=== PATIENT | female | born 1985 | race Caucasian/White ===

== ENCOUNTER 2024-05-12 22:10 | Emergency (ER) | payer SELFPAY ==
[2024-05-12 22:20] VITALS: BP 135/78; PULSE 98
== END 2024-05-12 22:50 | disposition home or self-care (01) ==
LOC: CC.ED 22:10
DX: T74.11XA Adult physical abuse, confirmed, initial encounter (principal); S93.402A Sprain of unspecified ligament of left ankle, initial encounter; F17.210 Nicotine dependence, cigarettes, uncomplicated; Z91.048 Other nonmedicinal substance allergy status; Z88.2 Allergy status to sulfonamides; Y07.010 Husband, current, perpetrator of maltreatment and neglect
CPT/HCPCS: 73610-LT; 99283

== ENCOUNTER 2024-06-08 18:24 | Inpatient (IN) | payer SELFPAY ==
[2024-06-08] MEDS: Sodium Chloride 0.9% 1,000 ML IV ONE ×2 (18:35→19:45)
[2024-06-08] MEDS: Ondansetron 4 MG/2 ML SDV IVPUSH PRN (18:47)
[2024-06-08 19:04] LABS: BASOPHILS ABSOLUTE AUTO 0.01 10^3/uL (0.00-0.50); BASOPHILS PERCENT AUTO 0.1 % (0-1); EOSINOPHILS ABSOLUTE AUTO 0.02 10^3/uL (0.00-1.50); EOSINOPHILS PERCENT AUTO 0.2 % (0-6); HEMATOCRIT 34.1 % (37.0-47.0); HEMOGLOBIN 11.6 g/dL (12.0-16.0); IMMATURE GRAN ABSOLUTE AUTO 0.01 10^3/uL (0.00-0.49); IMMATURE GRAN PERCENT AUTO 0.1 % (0.0-4.9); LYMPHOCYTES ABSOLUTE AUTO 0.73 10^3/uL (0.60-5.00); LYMPHOCYTES PERCENT AUTO 7.2 % (24-44); MEAN CORPUSCULAR HEMOGLOBIN 30.2 pg (27.0-32.0); MEAN CORPUSCULAR VOLUME 88.8 fL (83.0-97.0); MONOCYTES ABSOLUTE AUTO 0.78 10^3/uL (0.00-1.50); MONOCYTES PERCENT AUTO 7.7 % (0-10); NEUTROPHILS ABSOLUTE AUTO 8.61 x10^3/uL (1.80-8.00); NEUTROPHILS PERCENT AUTO 84.7 % (41-71); PLATELET COUNT,PLT 152 10^3/uL (150-400); RED BLOOD CELL COUNT 3.84 x10^6/uL (4.00-5.50); WHITE BLOOD CELL COUNT,WBC 10.2 10^3/uL (4.0-11.0)
[2024-06-08 19:17] LABS: ALBUMIN 1.8 g/dL (3.4-5.0); BILIRUBIN TOTAL 2.1 mg/dL (0.0-1.0); C-REACTIVE PROTEIN 7.03 mg/dL (<=0.50); CALCIUM 7.9 mg/dL (8.4-10.1); CREATININE 1.5 mg/dL (0.6-1.0); EST CRCL DRUG DOSING (CG) 50.42 mL/min; MAGNESIUM 1.2 mg/dL (1.8-2.4); POTASSIUM,K 4.2 mEq/L (3.5-5.0); PROTEIN TOTAL,TP 5.3 g/dL (6.4-8.2)
[2024-06-08 19:17] LABS: APPEARANCE,URINE CLOUDY (CLEAR); COLOR,URINE RED (YELLOW); GLUCOSE,URINE NEGATIVE (NEGATIVE); KETONES,URINE TRACE mg/dL (NEGATIVE); OCCULT BLOOD,URINE LARGE (NEGATIVE); PROTEIN,URINE >=300 mg/dL (NEGATIVE)
[2024-06-08] MEDS: Acetaminophen 500 MG Tab PO ONE (19:20)
[2024-06-08 19:30] LABS: BILIRUBIN,URINE MODERATE (NEGATIVE); LEUKOCYTE ESTERASE,URINE MODERATE (NEGATIVE); NITRITE,URINE NEGATIVE (NEGATIVE)
[2024-06-08 19:31] LABS: BACTERIA,URINE FEW /HPF (NOT SEEN); RBC,URINE PACKED /HPF (0-5); SQUAMOUS EPITHELIAL CELLS,UR FEW /HPF (NOT SEEN)
[2024-06-08] MEDS: Magnesium Sulfate/Water 4 GM in Premix Bag 1 BAG IV ONE (19:35)
[2024-06-08] MEDS: Morphine 2 MG/ML SYRINGE IVPUSH ONE (19:48)
[2024-06-08] MEDS: cefTRIAXone 2 GM Vial IVPUSH ONE (19:54)
[2024-06-08] MEDS ORDERED: Ondansetron 4 MG Tab.DIS PO PRN (21:46)
[2024-06-08] MEDS ORDERED: Docusate Sodium 100 MG Cap PO PRN (21:46)
[2024-06-08] MEDS ORDERED: Ketorolac 30 MG/ML SDV IVPUSH PRN (21:46)
[2024-06-08] MEDS ORDERED: Ondansetron 4 MG/2 ML SDV IV PRN (21:46)
[2024-06-08] MEDS ORDERED: Polyethylene Glycol 3350 Powder 17 GM Packet PO PRN (21:46)
[2024-06-08] MEDS: Lactated Ringers 1,000 ML IV SCH (22:02)
[2024-06-09] MEDS: cefTRIAXone 1 GM Vial IVPUSH SCH (07:40)
[2024-06-09] MEDS: Acetaminophen 325 MG Tab PO PRN (07:40)
[2024-06-09 07:43] LABS: BASOPHILS ABSOLUTE AUTO 0.01 10^3/uL (0.00-0.50); BASOPHILS PERCENT AUTO 0.1 % (0-1); EOSINOPHILS ABSOLUTE AUTO 0.02 10^3/uL (0.00-1.50); EOSINOPHILS PERCENT AUTO 0.2 % (0-6); HEMATOCRIT 33.4 % (37.0-47.0); HEMOGLOBIN 11.3 g/dL (12.0-16.0); IMMATURE GRAN ABSOLUTE AUTO 0.02 10^3/uL (0.00-0.49); IMMATURE GRAN PERCENT AUTO 0.2 % (0.0-4.9); LYMPHOCYTES ABSOLUTE AUTO 0.82 10^3/uL (0.60-5.00); LYMPHOCYTES PERCENT AUTO 7.1 % (24-44); MEAN CORPUSCULAR HEMOGLOBIN 30.4 pg (27.0-32.0); MEAN CORPUSCULAR HGB CONC 33.8 g/dL (32.0-36.0); MEAN CORPUSCULAR VOLUME 89.8 fL (83.0-97.0); MONOCYTES ABSOLUTE AUTO 1.11 10^3/uL (0.00-1.50); MONOCYTES PERCENT AUTO 9.6 % (0-10); NEUTROPHILS ABSOLUTE AUTO 9.64 x10^3/uL (1.80-8.00); NEUTROPHILS PERCENT AUTO 82.8 % (41-71); PLATELET COUNT,PLT 148 10^3/uL (150-400); RED BLOOD CELL COUNT 3.72 x10^6/uL (4.00-5.50); WHITE BLOOD CELL COUNT,WBC 11.6 10^3/uL (4.0-11.0)
[2024-06-09 07:53] LABS: CALCIUM 7.2 mg/dL (8.4-10.1); CREATININE 2.2 mg/dL (0.6-1.0); EST CRCL DRUG DOSING (CG) 34.38 mL/min; MAGNESIUM 2.5 mg/dL (1.8-2.4)
[2024-06-09] MEDS: cefTRIAXone 1 GM Vial IVPUSH ONE (10:23)
[2024-06-09] MEDS: Sodium Chloride 0.9% 1,000 ML IV ONE (11:37)
[2024-06-10] MEDS: cefTRIAXone 2 GM Vial IVPUSH SCH (07:42)
[2024-06-10 07:49] LABS: BASOPHILS ABSOLUTE AUTO 0.02 10^3/uL (0.00-0.50); BASOPHILS PERCENT AUTO 0.3 % (0-1); EOSINOPHILS ABSOLUTE AUTO 0.09 10^3/uL (0.00-1.50); EOSINOPHILS PERCENT AUTO 1.4 % (0-6); HEMATOCRIT 30.1 % (37.0-47.0); HEMOGLOBIN 10.2 g/dL (12.0-16.0); IMMATURE GRAN ABSOLUTE AUTO 0.01 10^3/uL (0.00-0.49); IMMATURE GRAN PERCENT AUTO 0.2 % (0.0-4.9); LYMPHOCYTES ABSOLUTE AUTO 1.23 10^3/uL (0.60-5.00); LYMPHOCYTES PERCENT AUTO 18.7 % (24-44); MEAN CORPUSCULAR HEMOGLOBIN 30.3 pg (27.0-32.0); MEAN CORPUSCULAR HGB CONC 33.9 g/dL (32.0-36.0); MEAN CORPUSCULAR VOLUME 89.3 fL (83.0-97.0); MONOCYTES ABSOLUTE AUTO 0.72 10^3/uL (0.00-1.50); MONOCYTES PERCENT AUTO 10.9 % (0-10); NEUTROPHILS ABSOLUTE AUTO 4.52 x10^3/uL (1.80-8.00); NEUTROPHILS PERCENT AUTO 68.5 % (41-71); PLATELET COUNT,PLT 144 10^3/uL (150-400); RED BLOOD CELL COUNT 3.37 x10^6/uL (4.00-5.50); WHITE BLOOD CELL COUNT,WBC 6.6 10^3/uL (4.0-11.0)
[2024-06-10 08:09] LABS: ALBUMIN 1.4 g/dL (3.4-5.0); BILIRUBIN TOTAL 0.2 mg/dL (0.0-1.0); C-REACTIVE PROTEIN 8.19 mg/dL (<=0.50); CALCIUM 7.3 mg/dL (8.4-10.1); EST CRCL DRUG DOSING (CG) 22.24 mL/min; MAGNESIUM 2.4 mg/dL (1.8-2.4); POTASSIUM,K 3.9 mEq/L (3.5-5.0); PROTEIN TOTAL,TP 4.6 g/dL (6.4-8.2)
[2024-06-10 08:12] LABS: CREATININE 3.4 mg/dL (0.6-1.0)
[2024-06-10] MEDS: Sodium Chloride 0.9% 1,000 ML IV SCH (13:21)
[2024-06-11 07:46] LABS: BASOPHILS ABSOLUTE AUTO 0.02 10^3/uL (0.00-0.50); BASOPHILS PERCENT AUTO 0.3 % (0-1); EOSINOPHILS ABSOLUTE AUTO 0.15 10^3/uL (0.00-1.50); EOSINOPHILS PERCENT AUTO 2.4 % (0-6); HEMATOCRIT 29.5 % (37.0-47.0); LYMPHOCYTES ABSOLUTE AUTO 1.17 10^3/uL (0.60-5.00); LYMPHOCYTES PERCENT AUTO 18.5 % (24-44); MEAN CORPUSCULAR HEMOGLOBIN 30.3 pg (27.0-32.0); MEAN CORPUSCULAR HGB CONC 33.9 g/dL (32.0-36.0); MEAN CORPUSCULAR VOLUME 89.4 fL (83.0-97.0); MONOCYTES ABSOLUTE AUTO 0.67 10^3/uL (0.00-1.50); MONOCYTES PERCENT AUTO 10.6 % (0-10); NEUTROPHILS ABSOLUTE AUTO 4.33 x10^3/uL (1.80-8.00); NEUTROPHILS PERCENT AUTO 68.2 % (41-71); PLATELET COUNT,PLT 172 10^3/uL (150-400); WHITE BLOOD CELL COUNT,WBC 6.3 10^3/uL (4.0-11.0)
[2024-06-11 08:00] LABS: ALBUMIN 1.4 g/dL (3.4-5.0); BILIRUBIN TOTAL 0.2 mg/dL (0.0-1.0); C-REACTIVE PROTEIN 4.87 mg/dL (<=0.50); CALCIUM 7.3 mg/dL (8.4-10.1); EST CRCL DRUG DOSING (CG) 21.01 mL/min; POTASSIUM,K 3.9 mEq/L (3.5-5.0); PROTEIN TOTAL,TP 4.7 g/dL (6.4-8.2)
[2024-06-11 08:11] LABS: CREATININE 3.6 mg/dL (0.6-1.0)
[2024-06-12 08:04] LABS: BASOPHILS ABSOLUTE AUTO 0.01 10^3/uL (0.00-0.50); BASOPHILS PERCENT AUTO 0.2 % (0-1); EOSINOPHILS ABSOLUTE AUTO 0.14 10^3/uL (0.00-1.50); EOSINOPHILS PERCENT AUTO 2.7 % (0-6); HEMOGLOBIN 9.7 g/dL (12.0-16.0); IMMATURE GRAN ABSOLUTE AUTO 0.01 10^3/uL (0.00-0.49); IMMATURE GRAN PERCENT AUTO 0.2 % (0.0-4.9); LYMPHOCYTES ABSOLUTE AUTO 1.41 10^3/uL (0.60-5.00); LYMPHOCYTES PERCENT AUTO 27.6 % (24-44); MEAN CORPUSCULAR HGB CONC 33.4 g/dL (32.0-36.0); MEAN CORPUSCULAR VOLUME 89.8 fL (83.0-97.0); MONOCYTES ABSOLUTE AUTO 0.51 10^3/uL (0.00-1.50); NEUTROPHILS ABSOLUTE AUTO 3.02 x10^3/uL (1.80-8.00); NEUTROPHILS PERCENT AUTO 59.3 % (41-71); PLATELET COUNT,PLT 181 10^3/uL (150-400); RED BLOOD CELL COUNT 3.23 x10^6/uL (4.00-5.50); WHITE BLOOD CELL COUNT,WBC 5.1 10^3/uL (4.0-11.0)
[2024-06-12 08:12] LABS: ALBUMIN 1.4 g/dL (3.4-5.0); BILIRUBIN TOTAL 0.4 mg/dL (0.0-1.0); C-REACTIVE PROTEIN 3.14 mg/dL (<=0.50); CALCIUM 7.3 mg/dL (8.4-10.1); EST CRCL DRUG DOSING (CG) 20.44 mL/min; POTASSIUM,K 4.1 mEq/L (3.5-5.0); PROTEIN TOTAL,TP 4.8 g/dL (6.4-8.2)
[2024-06-12 08:26] LABS: CREATININE 3.7 mg/dL (0.6-1.0)
[2024-06-12 12:19] VITALS: BP 147/100; PULSE 68
== END 2024-06-12 11:35 | DRG 871 ==
LOC: CC.ED 18:24 → UNDOADMOB 21:20 → CC.MS 21:20 → OBSVTOIN 06-09 10:52
PROVIDERS: ADMIT Nurse Practitioner; ATTEND Nurse Practitioner
DX: A41.51 Sepsis due to Escherichia coli [E. coli] (principal); N17.0 Acute kidney failure with tubular necrosis; N30.01 Acute cystitis with hematuria; R65.20 Severe sepsis without septic shock; E86.0 Dehydration; E83.42 Hypomagnesemia; E87.5 Hyperkalemia; F41.9 Anxiety disorder, unspecified; Z88.2 Allergy status to sulfonamides; Z88.8 Allergy status to other drugs, medicaments and biological substances; Z87.442 Personal history of urinary calculi
CPT/HCPCS: 36415; 74176; 76770; 80048; 80053; 81001; 81025; 83605; 83735; 83880; 85025; 86140; 87040; 87077; 87086; 87088; 87186; 96361; 96365; 96366; 96375; 96376; 99223; 99232; 99233; 99239; 99285-25; A9270-GY; G0378; J0696; J2270; J2405; J3475; J7030; J7120; U0002